=== PATIENT | female | born 1980 | race Caucasian/White ===

== ENCOUNTER 2016-06-23 07:57 | Emergency (ER) | payer BC, OTHER ==
[~2016-06-23] VITALS: Ht 162.6 cm; Wt 48.4 kg
[~2016-06-23 07:57] MED LIST: BUPR8MIS SL; PRENTAB26 PO
[2016-06-23 08:05] VITALS: TEMP 36.7; Ht 162.6 cm; Wt 48.4 kg
--- NOTE | 2016-06-23 08:41 | EMERGENCY ROOM VISIT NOTE ---
History Report prepared by Tasha: Raj Perkins Under the Supervision of: Dr. Sean Morataya M.D. First contact with patient: 08:05 Chief Complaint: ILLNESS Stated Complaint: CHEST PAIN History of Present Illness The patient is a 35 year old female who presents to the Emergency Room with complaints of worsening chest pain that started a week ago. The patient rates the discomfort as a 7 out of 10 in severity. She notes that this discomfort is worst with deep breaths. The patient has a history of smoking and Suboxone use. She notes that she tried to quit smoking two days ago to relieve her symptoms, but it has not helped. The patient denies jaw pain, arm pain, recent long travel, or history of blood clots. Source of History: patient Onset: one week ago Position: chest Symptom Intensity: 7/10 in severity Timing: worsening Modifying Factors (Worsening): breathing (deep breaths) Note: Denies: jaw pain, arm pain, recent long travel, or history of blood clots Review of Systems All systems have been listed, reviewed, and are negative other than those previously mentioned. Please see Additional Medical History Sheet. Past Medical & Surgical Surgical Problems: (1) delivery delivered Family History No pertinent family history Social History Smoking Status: Current Every Day Smoker Drug Use: none Marital Status: Housing Status: lives with family Occupation Status: employed Current/Historical Medications Scheduled Buprenorphine Hcl-Naloxone Hcl (Suboxone 8-2 Mg), 4 MG SL BID Scheduled PRN Ibuprofen Tab (Motrin), 600 MG PO Q6H PRN for Pain Allergies Coded Allergies: No Known Allergies (Unverified , 06/23/16) Physical Exam Vital Signs Date Time Temp Pulse Resp B/P Pulse Ox O2 Delivery O2 Flow Rate FiO2 06/23/16 09:45 69 20 121/60 100 06/23/16 08:14 107 06/23/16 08:05 36.7 81 20 150/59 100 Room Air Physical Exam GENERAL: Patient awake, alert, oriented x 3. Patient follows commands. Patient does not appear toxic. Patient is adequately hydrated and well- nourished. SKIN: No erythema, pallor, cyanosis or rash HEENT: Normal head, pupils equal, reactive to light and accommodation. Ears normal. Oral cavity and posterior pharynx appear normal. Neck: Without adenopathy, no neck vein distention. LUNGS: Clear to auscultation. No wheezes, no rales, no rhonchi. HEART: No murmurs. No gallops. No rubs CHEST: Point tenderness under left breast which reproduces pain. ABDOMEN: No masses, no rebound, no hepatomegaly or splenomegaly. EXTREMITIES: No signs of trauma. No pedal or pretibial edema. No calf or thigh tenderness. NEUROLOGIC: Cranial nerves II-XII within normal limits. No gross motor sensory function deficits. Medical Decision & Procedures ER Provider Diagnostic Interpretation: X ray results are stated below per my interpretation and the radiologist's interpretation. Laboratory Results 06/23/16 08:30 06/23/16 08:30 Test 06/23/16 08:24 06/23/16 08:30 Urine Test NEG (NEG) Red Blood Count 4.53 M/uL (4.2-5.4) Mean Corpuscular Volume 94.3 fL (80-100) Mean Corpuscular Hemoglobin 33.3 pg (25-34) Mean Corpuscular Hemoglobin Concent 35.4 g/dl (32-36) RDW Standard Deviation 42.1 fL (36.4-46.3) RDW Coefficient of Variation 12.3 % (11.5-14.5) Mean Platelet Volume 11.3 fL (7.4-10.4) Anion Gap 8.0 mmol/L (3-11) Est Creatinine Clear Calc Drug Dose 84.1 ml/min Estimated GFR () 126.6 Estimated GFR (Non- 109.3 BUN/Creatinine Ratio 28.9 (10-20) Calcium Level 9.4 mg/dl (8.5-10.1) Troponin I < 0.015 ng/ml (0-0.045) Laboratory results as stated above per my review. ECG Indication: chest pain Rate (beats per minute): 92 Rhythm: normal sinus Findings: nonspecific-ST abn, no ectopy ED Course 0835: Past medical records reviewed. The patient was evaluated in room B4. A complete history and physical examination was performed. 30: Upon reevaluation, the patient appeared to have improvement of her symptoms. I discussed today's findings with her. She verbalized agreement of the treatment plan. The patient was discharged home. Medical Decision I considered multiple diagnoses including myocardial infarction, chest wall pain , pericarditis, myocarditis, aortic emergencies, pulmonary embolism, congestive heart failure, GI causes, and other significant cardiopulmonary disorders. Multiple labs, EKG and imaging were obtained. The patient has no evidence of a PE. I do not believe she is having an acute cardiac cause her pain. The patient has reproducible pleuritic chest pain under the left breast. The patient has been lifting heavy items at home including children. The patient will be placed on ibuprofen and encouraged to use heat. She is encouraged to avoid lifting if possible. Impression Primary Impression: Pleuritic chest pain Scribe Attestation The scribe's documentation has been prepared under my direction and personally reviewed by me in its entirety. I confirm that the note above accurately reflects all work, treatment, procedures, and medical decision making performed by me. Departure Information Dispostion Home / Self-Care Prescriptions Ibuprofen Tab (MOTRIN) 600 Mg Tab 600 MG PO Q6H Y for Pain, #20 TAB Prov: Sean Morataya M.D. 06/23/16 Referrals No Doctor, Assigned (PCP) Patient Instructions A Signature Page, My [facility] Additional Instructions 600 mg ibuprofen every 6 hours until pain is resolved. Apply heat intermittently to your chest over the next 2-3 days. Follow-up with your family physician or return here in one week if symptoms have not completely resolved. Avoid heavy lifting over the next 2 weeks.
[2016-06-23 08:52] LABS: HEMATOCRIT 42.7 % (37-47); MEAN CELL VOLUME 94.3 fL (80-100); MEAN CORPUSCULAR HEMOGLOBIN 33.3 pg (25-34); MEAN CORPUSCULAR HGB CONC 35.4 g/dl (32-36); MEAN PLATELET VOLUME 11.3 fL (7.4-10.4); PLATELET COUNT 211 K/uL (130-400); RED BLOOD COUNT 4.53 M/uL (4.2-5.4); WHITE BLOOD COUNT 5.78 K/uL (4.8-10.8)
--- NOTE | 2016-06-23 09:11 | DIAGNOSTIC IMAGING REPORT ---
TWO VIEW CHEST CLINICAL HISTORY: Atypical chest pain. FINDINGS: PA and lateral chest radiographs are obtained. No prior studies are available for comparison at the time of dictation. The cardiomediastinal silhouette is unremarkable. The lungs appear hyperinflated, likely due to good inspiratory result. The lungs and pleural spaces are clear. There is no pneumothorax. The bony thorax appears intact. IMPRESSION: No active disease in the chest. Electronically signed by: Josh Auguste M.D. 06/23/2016 9:09 AM Dictated Date/Time: 06/23/2016 9:08 AM
[2016-06-23 09:12] LABS: BLOOD UREA NITROGEN 21 mg/dl (7-18); BUN/CREATININE RATIO 28.9 (10-20); CALCIUM 9.4 mg/dl (8.5-10.1); CARBON DIOXIDE 23 mmol/L (21-32); CHLORIDE 110 mmol/L (98-107); CREATININE 0.72 mg/dl (0.60-1.20); GLUCOSE 92 mg/dl (70-99); POTASSIUM 3.8 mmol/L (3.5-5.1); SODIUM 141 mmol/L (136-145)
[2016-06-23] MEDS ORDERED: IBUP-1427 PO (09:33)
[2016-06-23 09:45] VITALS: BP 121/60; PULSE 69; O2SAT 100
== END 2016-06-23 09:45 | disposition home or self-care (01) ==
LOC: C.EDB 07:58
DX: R07.1 Chest pain on breathing (principal); Z87.891 Personal history of nicotine dependence